=== PATIENT | male | born 1995 ===

== ENCOUNTER 2023-01-29 11:15 | Emergency (ER) | payer OTHER, SELFPAY ==
--- NOTE | ~2023-01-29 | CT_ITS ---
EXAMINATION: CT MAXILLOFACIAL WITH CONTRAST CLINICAL INFORMATION: Left upper molar abscess with left facial swelling. COMPARISON: There are no prior studies available for comparison at time of dictation. TECHNIQUE: Multidetector helical imaging was performed in the axial plane without and with intravenous contrast with generation of coronal and sagittal reformatted images. 85 mL of Omnipaque 350 were given intravenously. DLP: 580.34 mGy-cm. FINDINGS: MAXILLA: There are extensive periapical lucencies around the roots of the root filled left maxillary 1st molar tooth. No definite defect is noted in the alveolar bone or inferior left maxillary sinus. However, there is loss of the buccal fat along the left maxilla, and there is increased attenuation and swelling in the left malar soft tissues. There is moderate beam hardening artifact, limiting evaluation for a definite focal abscess. There are also periapical lucencies around the roots of the left maxillary 2nd molar tooth. There is moderate polypoid mucoperiosteal thickening in the inferior left maxillary sinus adjacent to the roots of the molar teeth as described above, and the changes in the sinus may be odontogenic related. No fractures are demonstrated. MANDIBLE: The mandible is intact, and no fractures are demonstrated. There are no periapical lucencies around the roots of the mandibular teeth. PARANASAL SINUSES: As described above there is mucoperiosteal thickening in the left maxillary sinus, and there is opacification of the left ostiomeatal complex. There is minimal mucoperiosteal thickening circumferentially in the right maxillary sinus; the ostiomeatal complex is patent. The frontal and sphenoid sinuses are well-aerated. There is mild mucoperiosteal thickening in the bilateral ethmoid air cells. NASAL CAVITY AND SEPTUM: The nasal septum is slightly deviated to the right. There are no prominent right-sided bony nasal septal spurs. There are no large polyps or masses in the nasal cavities. ORBITS: The bony orbits and the orbital contents appear normal bilaterally. TEMPOROMANDIBULAR JOINTS: The temporomandibular joints are normally aligned, and the condylar heads appear normal. ADDITIONAL RELEVANT FINDINGS: The lamina papyracea are intact. The carotid canals are normally covered by bone. The ethmoid roofs are symmetric. The mastoid air cells are clear. Limited evaluation demonstrates no acute intracranial findings. CT/CT facial bones w IV con IMPRESSION: 1. There are extensive periapical lucencies around the roots of the root filled left maxillary 1st and molar tooth, with smaller periventricular lucencies around the roots of the left mandibular 2nd molar tooth. There is loss of the buccal fat along the left maxilla, and there is increased attenuation and swelling in the left malar soft tissues; these findings are consistent with an odontogenic related infective process in the left malar region, but no definite discrete fluid collection is demonstrated. 2. There is mucoperiosteal thickening in the inferior left maxillary sinus, which may be odontogenic related. There is mild paranasal sinus disease in the bilateral ethmoid and the right maxillary sinuses.
[2023-01-29 11:22] VITALS: BP 150/103; PULSE 93; RESP 16; TEMP 36.6; O2SAT 97; BMI 36.9
--- NOTE | 2023-01-29 11:26 | ED_ITS ---
HPI - Dental/Oral General Chief complaint: Dental/Oral Stated complaint: Swelling/pain in face Time Seen by Provider: 01/29/23 11:51 Source: patient Mode of arrival: ambulatory Limitations: no limitations History of Present Illness HPI Narrative: 27 year old male with no significant pmhx presents to the ED today with a complaint of upper dental pain and facial swelling x1 day. Reports pain to his left upper molar, first noticed last night. Pain has been worsening since onset. Reports waking up this morning with swelling to the left side of his face and 10/10 shooting pains. Admits to difficulty opening his mouth secondary to pain/ swelling. States he can see a bump along the gum of his molar. Did not take anything for the pain prior to arrival. Reports root canal in the affected tooth one year ago. Denies trauma to the mouth/ tooth. Denies fever, chills, difficulty or pain with swallowing, difficulty breathing. Related Data Previous Rx's Medication Instructions Recorded clindamycin HCl 300 mg capsule 300 mg PO TID 10 days #30 caps 01/29/23 morphine 15 mg immediate release 15 mg PO Q8H PRN pain (scale score 01/29/23 tablet 7-10) #14 tabs Allergies Allergy/AdvReac Type Severity Reaction Status Date / Time No Known Allergies Allergy Verified 01/29/23 11:22 Review of Systems 2 Review of Systems: Constitutional: No fever, chills, fatigue, night sweats, weight changes ENT/Mouth: No ear pain, hearing loss, nasal congestion, sinus pain, rhinorrhea, sore throat, +dental pain Eyes: No eye pain, swelling, redness, vision changes, discharge Cardio: No chest pain, palpitations, LARIOS, orthopnea, peripheral edema Pulm: No SOB, cough, sputum, wheezing, dyspnea, hemoptysis GI: No nausea, vomiting, hematemesis, abdominal pain, diarrhea, constipation, hematochezia, melena : No irregular bleeding, dysuria, frequency, urgency, hesitancy, hematuria, flank pain, urinary flow changes, urinary incontinence or retention MSK: No back pain, neck pain, joint pain, myalgias Skin: No lesions, rashes Neuro: No weakness, numbness, paresthesias, LOC, dizziness, headache All other systems reviewed and are negative. [facility] Past Medical History Attestation statement: The following information was validated with the patient. Source: old records reviewed and nursing notes reviewed Social History Smoked in Last 30 Days: No Use of substances other than those prescribed or required for medical reasons: Yes Substance Use Type: Marijuana Advance Directives: No Advance Directives Information Provided: No Physical Exam 2 Vital Signs: Vital Signs: Last Vital Signs Temp 98.1 F 01/29/23 14:36 Pulse 85 01/29/23 14:36 Resp 20 01/29/23 14:36 BP 170/90 H 01/29/23 14:36 Pulse Ox 97 01/29/23 14:36 O2 Del Method Room Air 01/29/23 14:36 BMI result Body Mass Index 36.9 Vital signs stable, afebrile Const: Other: + uncomfortable, walking around the room , yelling in pain General: cooperative, alert and awake Orientation/consciousness: patient oriented x3 Limitations: no limitations HEENT: Other: Face: left facial swelling from the zygomatic region extending to the jaw line. no overlying cellulitic changes. Mouth: lips & tongue wnl. multiple dental carries. crown noted to left tooth #14 with small abscess around the lingual and buccal gingiva. ttp. palpable fluctuance to lingual gingival abscess. left buccal mucosa edematous, ttp. posterior oropharynx without erythema/ edema, uvula midline, speaking in complete sentences and controlling secretions. General nose exam: Normal external nose present Teeth and gingiva: c lily, multiple restorations and poor dentition Teeth image: 1. affected tooth with small abscess noted to lingual and buccal gingiva Eyes: General: appearance normal, both eyes and all related structures P eriorbital: periorbital findings normal Conjunctivae: conjunctivae normal Sclerae: sclerae normal Pupils: Equal, round and reactive pupils present E OM: EOMs intact bilaterally Neck: Neck: Yes normal visual inspection, Yes full ROM and Yes no lymphadenopathy Resp: Effort & Inspection: normal respiratory effort, able to speak in complete sentences, no respiratory distress and no tripod positioning A uscultation: clear to auscultation bilaterally Cardio: Rate: regular rate Rhythm: regular rhythm Peripheral pulses: r adial pulses present Skin: General skin exam: no rashes or lesions noted Neuro: General: patient oriented x3, gait normal and moves all extremities Cranial nerves: Yes Equal, round and reactive pupils present Extrem: General: Yes normal to inspection and Yes full ROM Course Course Course Narrative: RME: 27yo M w/PMHx prior root canal c/o L upper dental pain and facial swelling x last night. denies fever +L upper tooth w/gingival swelling/erythema and fluctuance. +L facial swelling & lymphadenopathy submandibularly Labs ordered Full HPI, ROS and PE to be performed by primary ED provider. Reevaluation(s) Reevaluation #1: 1230-- CBC with leukocytosis to 12.4. No anemia. H&H stable. Chemistry without acute electrolyte abnormality requiring intervention. Lactic acid 0.8. CRP elevated to 1.12 indicating inflammatory process. Sed rate WNL. Vital signs stable. I do not suspect sepsis at this time. Patient will receive a dose of IV clindamycin for broad-spectrum antibiotic coverage along with IV morphine as we await CT. > patient requesting STD testing. Denies symptoms of penile discharge, itching, or dysuria. States his partner has been having issues conceiving and he would like proof that he does not have an STD. I offered CT/NG urine test and patient agrees. 1430-- CT facial bones showing periapical lucencies around the affected tooth indicative of dental infection. There is no discrete fluid collection to indicate abscess. Informed patient of imaging results. Informed patient that he needs to follow up with a dentist this week. He states that he has a dentist at [facility]. I will also provide him with a referral to dentist in [place] if he is unable to get in with his dentist. Advised him to call tomorrow morning to make an appointment. His vital signs have remained stable and he is afebrile. I still do not suspect sepsis. On re-evaluation he states that his pain has improved with morphine. Will send him home with clindamycin and oral morphine for pain control. Discussed strict return precautions. All questions answered at this time. Patient is agreeable disposition and stable for discharge. Medications Administered Discontinued Medications Generic Name Dose Route Start Last Admin Trade Name Freq PRN Reason Stop Dose Admin Sodium Chloride 1,000 mls @ 999 mls/hr 01/29/23 12:00 01/29/23 13:02 Ns IV 01/29/23 13:00 Infused .Q1H1M AMIRA Infusion Clindamycin Phosphate 600 mg in 50 mls @ 100 mls/hr 01/29/23 12:24 01/29/23 13:05 Cleocin IV 01/29/23 12:53 Infused ONCE ONE Infusion Iohexol 100 ml 01/29/23 13:15 01/29/23 13:15 Iohexol 350 Mg/Ml 100 Ml Infus..Btl IV 01/29/23 13:16 85 ml ONCE ONE Administration Morphine Sulfate 4 mg 01/29/23 11:54 01/29/23 12:01 Morphine Sulfate 4 Mg/Ml Cartridge IVPUSH 01/29/23 11:55 4 mg ONCE ONE Administration Protocol Morphine Sulfate 4 mg 01/29/23 13:12 01/29/23 13:23 Morphine Sulfate 4 Mg/Ml Cartridge IVPUSH 01/29/23 13:13 4 mg ONCE ONE Administration Protocol Medical Decision Making Medical Decision Making [facility] Narrative: 27 year old male with no significant pmhx presents to the ED today with a complaint of upper dental pain and facial swelling x1 day. VSS, afebrile. Patient in obvious discomfort, pacing around the room in pain. Nontoxic appearing. On exam, there is left facial swelling from the zygomatic region extending to the jaw line. no overlying cellulitic changes. lips & tongue wnl. multiple dental carries. crown noted to left tooth #14 with small abscess around the lingual and buccal gingiva. ttp. palpable fluctuance to lingual gingiva abscess. left buccal mucosa edematous, ttp . posterior oropharynx without erythema/ edema, uvula midline, speaking in complete sentences and controlling secretions. Clinical concern for dental caries, dental/periapical abscess, facial cellulitis/abscess. Unlikely dental fracture, avulsion, or subluxation. Unlikely facial fracture, parotitis, osteomyelitis, deep neck infection, sepsis, or bacteremia, airway compromise. Unlikely periorbital or orbital cellulitis. Plan for labs, lactic and CT. Differential Diagnosis Differential Diagnoses: The differential diagnosis associated with the presentation includes As above. Admission/Observation Consideration of admission/observation: Escalation of care including admission/observation considered In this patient with dental infection and facial swelling, admission was considered. Lab Data [facility] Lab Attestation statement: I reviewed the patient's lab results. As above. 01/29/23 11:45 01/29/23 11:45 Labs: Lab Results 01/29/23 01/29/23 Range/Units 11:45 12:46 WBC 12.4 H (4.8-10.8) X10*3/uL RBC 5.68 (4.60-5.80) X10*6/uL Hgb 15.3 (14.0-18.0) g/dl Hct 46.5 (42.0-52.0) % MCV 81.9 (80.0-98.0) fL MCH 26.9 L (27.0-33.0) pg MCHC 32.9 (31.0-36.0) g/dl RDW 13.3 (11.0-16.0) % Plt Count 360 (160-400) X10*3/uL MPV 10.1 (9.4-12.4) fL Immature Gran % (Auto) 1.0 H (0.0-0.4) % Neut % (Auto) 78.2 H (45-73) % Lymph % (Auto) 12.2 L (20-40) % Billings % (Auto) 6.5 (2-11) % Eos % (Auto) 1.9 (0-4) % Baso % (Auto) 0.2 (0-2) % Lymph # (Auto) 1.5 (1.2-4.9) X10*3/uL Billings # (Auto) 0.8 (0.1-1.2) X10*3/uL Eos # (Auto) 0.2 (0.0-0.4) X10*3/uL Baso # (Auto) 0.0 (0.0-0.2) X10*3/uL Abs Immat Gran (auto) 0.12 H (0.00-0.03) X10*3/uL Absolute Neuts (auto) 9.7 H (2.0-8.3) x10*3/uL Absolute Nucleated RBC 0.000 (0.0-0.012) X10*3/uL Nucleated RBC % (auto) 0.0 (0.0-0.2) /100WBC ESR 12 (0-15) MM/HR Sodium 139 (135-145) mmol/L Potassium 4.1 (3.3-5.1) mmol/L Chloride 108 (96-108) mmol/L Carbon Dioxide 24 (22-29) mmol/L Anion Gap 11 L (12-20) BUN 11 (9-16) mg/dL Creatinine 0.86 (0.5-1.4) mg/dL Estim Creat Clear Calc 157.2 Estimated GFR > 60 Random Glucose 92 (60-115) mg/dL Lactic Acid 0.8 (0.5-2.0) mmol/L Calcium 9.1 (8.4-10.2) mg/dL C-Reactive Protein 1.12 H (< or = 0.50) mg/dL Chlam trachomat DNA PCR NOT DETECTED (Not Detect.) N.gonorrhoeae DNA (PCR) NOT DETECTED (Not Detect.) Independent Interpretation I performed an independent interpretation of an: CT Scan Interpretation: CT facial bones without acute fluid collection indicating abscess, agree with radiologist's interpretation. Radiology Impression Discussion of test interpretation with radiology: I have reviewed the radiologist's reading. Radiologist Impression: CT facial bones w IV con IMPRESSION: 1. There are extensive periapical lucencies around the roots of the root filled left maxillary 1st and molar tooth, with smaller periventricular lucencies around the roots of the left mandibular 2nd molar tooth. There is loss of the buccal fat along the left maxilla, and there is increased attenuation and swelling in the left malar soft tissues; these findings are consistent with an odontogenic related infective process in the left malar region, but no definite discrete fluid collection is demonstrated. 2. There is mucoperiosteal thickening in the inferior left maxillary sinus, which may be odontogenic related. There is mild paranasal sinus disease in the bilateral ethmoid and the right maxillary sinuses. Independent Historian Clinical information obtained from an independent historian. History obtained from or confirmed by: Parent (mom) External Record Review External record reviewed: Inpatient record Prescription Management I considered prescription management with: Pain Medication and Antibiotic Chronic Conditions Patient?s care impacted by: Other (Dental caries, poor dentition) Social Determinants Patient?s care significantly limited by Social Determinants of Health including: Other Social Determinant of Health Procedures Abscess I/D Site: oral Side (if applicable): left Sedation/analgesia: none Local Anesthetic: other anesthetic (lollicaine topical anesthetic ) Technique: needle aspiration Amount of fluid expressed (mL): 1 Sent for culture/gram staining?: No Irrigation: No Packing used?: none Critical Care Time Critical Care Time Critical Care Time: Yes Total Critical Care Time: 45 Attestation: Critical care time in the amount of 45 minutes has been provided to the patient in terms of direct patient care, frequent reevaluation on IV morphine, review and interpretation of medical data and results, and management of potentially life-threatening conditions. This is all outside of any medical procedures. Discharge Plan Discharge Clinical Impression: Dental infection Patient Disposition: Home, Self-Care Instructions: Dental Abscess (ED), Root Canal (DC) Additional Instructions: Your lab work today showed a slight increase in white blood cell count indicating infection. This CT of your facial bones showed infection to your l upper left 1st and 2nd molar with swelling of your left cheek. It does not show a discrete fluid collection to indicate an abscess. This does not warrant surgery or surgical drainage at this time. Your given a dose of antibiotics in the emergency department today. Your pain improved with IV morphine. Clindamycin is an antibiotic that will treat your dental infection. This is been sent to your pharmacy. Take the entire course of antibiotics and do not miss any doses or stop taking them early as this may cause infection to return or worsen. Morphine has been sent to your pharmacy. Take this as needed for pain/discomfort. Follow-up with your dentist this week. If you are unable to get in with them, a referral for a new dentist has been provided to you. Additionally you tested negative for gonorrhea and chlamydia. If symptoms persist or worsen, you began to have trouble swallowing or breathing, the infection worsens despite treatment with antibiotics, please return to the emergency department. In case of emergency call 911. [address] Phone number: [phone] Prescriptions: New clindamycin HCl 300 mg capsule 300 mg PO TID 10 Days Qty: 30 0RF morphine 15 mg tablet 15 mg PO Q8H PRN (Reason: pain (scale score 7-10)) Qty: 14 0RF Rx Instructions: Partial Fill upon patient request. Stand Alone Forms: Work/School Release Interventions: ED Discharge Assessment Last Done: 01/29/23 15:03 Discharge Date/Time: 01/29/23 15:06
--- NOTE | 2023-01-29 11:49 | PC.NURSE ---
20gIV placed in right AC w/o difficulty - labs drawn and sent to lab. tech obtaining second round of cultures at this time. pt c/o 12/13 left face/tooth pain. pt had tooth extracted a year ago and didn't have problems until last night. swelling/tender to touch. afebrile at this time. denies fever chills. family bedside. call wallis placed within reach.
[2023-01-29 11:52] LABS: MANUAL DIFF FLAG NO
[2023-01-29 11:54] LABS: Basophils Percent Auto 0.2 % (0-2); Eosinophils Absolute Auto 0.2 X10*3/uL (0.0-0.4); Eosinophils Percent Auto 1.9 % (0-4); Hematocrit 46.5 % (42.0-52.0); Hemoglobin 15.3 g/dl (14.0-18.0); Imm Gran Abs Auto 0.12 X10*3/uL (0.00-0.03); Lymphocytes Absolute Auto 1.5 X10*3/uL (1.2-4.9); Lymphocytes Percent Auto 12.2 % (20-40); Mean Corpuscular HGB Conc 32.9 g/dl (31.0-36.0); Mean Corpuscular Hemoglobin 26.9 pg (27.0-33.0); Mean Corpuscular Volume 81.9 fL (80.0-98.0); Mean Platelet Volume 10.1 fL (9.4-12.4); Monocytes Absolute Auto 0.8 X10*3/uL (0.1-1.2); Monocytes Percent Auto 6.5 % (2-11); Neutrophils Absolute Auto 9.7 x10*3/uL (2.0-8.3); Neutrophils Percent Auto 78.2 % (45-73); Platelet Count 360 X10*3/uL (160-400); Red Blood Count 5.68 X10*6/uL (4.60-5.80); Red Cell Distribution Width 13.3 % (11.0-16.0); White Blood Count 12.4 X10*3/uL (4.8-10.8)
[2023-01-29] MEDS: Morphine Sulfate 4 MG/ML CARTRIDGE IVPUSH ×2 (12:01→13:23)
[2023-01-29] MEDS: 0.9 % Sodium Chloride 1,000 ML 999 ML IV (12:01)
[2023-01-29 12:03] LABS: Lactic Acid 0.8 mmol/L (0.5-2.0)
--- NOTE | 2023-01-29 12:04 | PC.NURSE ---
medications administered per provider order.
[2023-01-29 12:06] LABS: Anion Gap 11 (12-20); Blood Urea Nitrogen 11 mg/dL (9-16); C Reactive Protein 1.12 mg/dL (< or = 0.50); Calcium 9.1 mg/dL (8.4-10.2); Carbon Dioxide 24 mmol/L (22-29); Chloride 108 mmol/L (96-108); Creatinine Clr Calc Pharmacy 157.2; Estimated Glomerular Filt Rate > 60; Glucose Random 92 mg/dL (60-115); Potassium 4.1 mmol/L (3.3-5.1); Sodium 139 mmol/L (135-145)
[2023-01-29 12:29] LABS: Erythrocyte Sedimentation Rate 12 MM/HR (0-15)
[2023-01-29] MEDS: Clindamycin Phosphate/D5W 600 MG/50 ML PIGGYBACK 100 MG IV (12:35)
--- NOTE | 2023-01-29 12:40 | PC.NURSE ---
abx administered per provider order.
[2023-01-29] MEDS: iohexoL 350 MG/ML 100 ML INFUS..BTL IV (13:15)
--- NOTE | 2023-01-29 13:27 | PC.NURSE ---
medication administered per provider. provider bedside.
[2023-01-29 14:24] LABS: CT PCR NOT DETECTED (Not Detect.); NG PCR NOT DETECTED (Not Detect.)
[2023-01-29 14:36] VITALS: BP 170/90; PULSE 85; RESP 20; TEMP 36.7; O2SAT 97
== END 2023-01-29 15:06 | disposition home or self-care (01) ==
PROVIDERS: Physician Assistant; Physician Assistant Medical; Emergency Provider Emergency Medicine; PCP Nurse Practitioner Family
DX: K04.7 Periapical abscess without sinus (principal); K08.89 Other specified disorders of teeth and supporting structures; Z79.899 Other long term (current) drug therapy; Z20.2 Contact with and (suspected) exposure to infections with a predominantly sexual mode of transmission
CPT/HCPCS: 0353U; 36415; 41800; 70487; 80048; 83605; 85025; 85652; 86140; 87040; 96361; 96374; 96375; 96376; 99284; J0736; J2270; Q9967

== ENCOUNTER 2023-09-11 13:07 | Emergency (ER) | payer OTHER, SELFPAY ==
[2023-09-11 14:10] VITALS: BP 131/89; PULSE 107; RESP 18; TEMP 37; O2SAT 98; BMI 39.5
[2023-09-11 14:32] LABS: MANUAL DIFF FLAG NO
[2023-09-11 14:36] LABS: Appearance Urine Turbid; Color Urine Yellow; Glucose Urine UA Negative (Negative); Leukocyte Esterase Urine Negative (Negative); Nitrite Urine Negative (Negative); PH 7.5 (5.0-9.0); Specific Gravity - Urine 1.025 (1.005-1.025); Urine Blood Negative (Negative); Urine Ketones Negative (Negative); Urine Protein Negative (Neg-Trace)
[2023-09-11 14:38] LABS: Basophils Absolute Auto 0.1 X10*3/uL (0.0-0.2); Basophils Percent Auto 0.6 % (0-2); Eosinophils Absolute Auto 0.2 X10*3/uL (0.0-0.4); Eosinophils Percent Auto 1.7 % (0-4); Hematocrit 45.9 % (42.0-52.0); Hemoglobin 15.2 g/dl (14.0-18.0); Imm Gran Abs Auto 0.16 X10*3/uL (0.00-0.03); Imm Gran Pct Auto 1.4 % (0.0-0.4); Lymphocytes Percent Auto 17.1 % (20-40); Mean Corpuscular HGB Conc 33.1 g/dl (31.0-36.0); Mean Corpuscular Hemoglobin 27.6 pg (27.0-33.0); Mean Corpuscular Volume 83.5 fL (80.0-98.0); Mean Platelet Volume 10.5 fL (9.4-12.4); Monocytes Absolute Auto 0.7 X10*3/uL (0.1-1.2); Monocytes Percent Auto 5.8 % (2-11); Neutrophils Absolute Auto 8.4 x10*3/uL (2.0-8.3); Neutrophils Percent Auto 73.4 % (45-73); Platelet Count 331 X10*3/uL (160-400); Red Cell Distribution Width 13.2 % (11.0-16.0); White Blood Count 11.5 X10*3/uL (4.8-10.8)
[2023-09-11 14:49] LABS: Alanine Aminotransferase 75 U/L (0-40); Albumin Level 4.4 g/dL (3.5-5.0); Alkaline Phosphatase 54 U/L (39-117); Anion Gap 12 (12-20); Aspartate Amino Transferase 35 U/L (5-37); Bilirubin Total 0.2 mg/dL (0.0-1.0); Blood Urea Nitrogen 13 mg/dL (9-16); Calcium 9.7 mg/dL (8.4-10.2); Carbon Dioxide 23 mmol/L (22-29); Chloride 109 mmol/L (96-108); Creatinine Clr Calc Pharmacy 170.4; Estimated Glomerular Filt Rate > 60; Glucose Random 90 mg/dL (60-115); Potassium 4.1 mmol/L (3.3-5.1); Sodium 140 mmol/L (135-145); Total Protein 7.5 g/dL (6.5-8.0)
[2023-09-11 15:12] LABS: Influenza A PCR NEGATIVE (Negative); Influenza B PCR NEGATIVE (Negative); Resp Syncy Virus RNA Qual PCR NEGATIVE (Negative); SARS COV2 PCR INHOUSE NEGATIVE (Negative)
[2023-09-11 15:50] LABS: Lipase 42 U/L (8-78)
== END 2023-09-11 19:37 | disposition left against medical advice (07) ==
PROVIDERS: Physician Assistant; Emergency Provider Emergency Medicine; PCP Nurse Practitioner Family
DX: R10.9 Unspecified abdominal pain (principal); Z03.818 Encounter for observation for suspected exposure to other biological agents ruled out; Z79.899 Other long term (current) drug therapy
CPT/HCPCS: 0241U; 80053; 81003; 83690; 85025; 99282; 99283

== ENCOUNTER 2024-07-08 16:40 | Emergency (ER) | payer SELFPAY ==
[2024-07-08 17:00] VITALS: BP 134/86; PULSE 94; RESP 18; TEMP 36.6; O2SAT 98; BMI 40.0
--- NOTE | 2024-07-08 18:38 | ED.GENADULT ---
HPI - General Adult General Chief complaint: Eye Problems Stated complaint: ?pink eye/left Time Seen by Provider: 07/08/24 18:37 Source: patient Mode of arrival: ambulatory Limitations: no limitations History of Present Illness ED Provider: Afshin Molina [facility] narrative: 28 yold male presents to the ED for left eye irritation since this morning. Patient states waking up with left eye redness, yellow discharge, and yellow matting crusting on eyelids. patient denies any eye pain, change in vision, recent trauma, or sleeping with contacts. Related Data Previous Rx's ?Medication ?Instructions ?Recorded clindamycin HCl 300 mg capsule 300 mg PO TID 10 days #30 caps 01/29/23 morphine 15 mg immediate release 15 mg PO Q8H PRN pain (scale score 01/29/23 tablet 7-10) #14 tabs erythromycin 5 mg/gram (0.5 %) eye 0.5 inch ophthalmic (eye) QID 5 07/08/24 ointment days #3.5 grams Allergies Allergy/AdvReac Type Severity Reaction Status Date / Time No Known Allergies Allergy Verified 07/08/24 17:02 Review of Systems Review of Systems: left eye irrataions Yes all other systems are reviewed and are negative [facility] Social History Social History Substance Use Type: Marijuana Advance Directives: No Advance Directives Information Provided: No Do you have a plan to hurt others: No Plan Physical Exam ED Vital Signs: Vital Signs - 24 hr 07/08/24 17:00 07/08/24 19:11 Temperature 98 F 98 F Pulse Rate 94 94 Respiratory Rate 18 18 Blood Pressure 134/86 134/86 Pulse Oximetry 98 98 Oxygen Delivery Method Room Air Room Air BMI result Body Mass Index 40.0 Const General: cooperative, healthy appearing, comfortable, no acute distress, well developed, alert, awake and Physically active Orientation/consciousness: patient oriented x3 HENMT Head: Yes normal to inspection, Yes No palpable skull fracture present, Yes normocephalic, Yes atraumatic and No abrasion Ears: hearing grossly normal bilaterally, external ears normal, TM's normal bilaterally, TM normal on the right, TM normal on the left, EAC's normal and mastoids normal Throat: Yes posterior oropharynx normal, Yes tonsils normal and Yes uvula midline Eyes Other: RIght eye: normal. visual acuity 20/20 Left eye: mild conjuctiva erythema. positive for clear discharge. negative for eyelid swelling. FLurouscein dye test with wood's lamp negative for corneal abrasions, cornela ulcer, globe rupture, foreign body, dendrites, or hyphema. Negative for signs of glaucoma or orbital celluliitis. visual acuity 20/20 Neck Neck: Yes normal visual inspection, Yes full ROM, Yes no lymphadenopathy, Yes no meningeal signs, Yes trachea midline, Yes supple, No anterior neck swelling and No tender Chest Chest palpation & inspection: normal inspection of the chest and normal palpation of entire chest wall Resp Effort & Inspection: normal respiratory effort and able to speak in complete sentences Auscultation: clear to auscultation bilaterally Cardio Jugular venous distension: no JVD Heart sounds: S1 normal heart sound present and S2 normal heart sound present GI Inspection: Yes normal to inspection Palpation (GI): Soft to palpation, not firm, nontender, no guarding and not rigid General: Yes no CVA tenderness Back/Spine/Pelvis Back: no CVA tenderness and No back tenderness Skin General skin exam: no rashes or lesions noted, elasticity normal and turgor normal Neuro General: patient oriented x3, gait normal, tone normal, moves all extremities, Normal light touch and pain sensation, no meningeal signs, no focal motor deficits and CN's II-XI intact bilaterally Extrem General: Yes normal to inspection, Yes full ROM and Yes capillary refill normal Psych Appearance: grossly normal, well kempt and not disheveled Medical Decision Making Medical Decision Making MDM Narrative: 28 yold male presents to the ED for left pink eye irrationa since this morning. Patient states he woke up with left eyelids yellow crusting with yellow discharge and matting. patient denies any eye pain, changer in vision, recent trauma, wearing contacts, dizziness, or headache. Not suspecting glaucoma, globe rupture, corneal abrasions, corneal ulcer, orbital cellulitis, or any other life-threatening etiology. Patient will be discharged with erythromycin. Patient explained worrisome signs informed to return to the ED immediately Differential Diagnosis Differential Diagnoses: The differential diagnosis associated with the presentation includes (Patient is a virus corneal abrasion corneal ulcer) Admission/Observation Consideration of admission/observation: Escalation of care including admission/observation considered Independent Historian Clinical information obtained from an independent historian. History obtained from or confirmed by: Other (patient) Prescription Management I considered prescription management with: Antibiotic Discharge Plan Discharge Clinical Impression: Bacterial conjunctivitis Patient Disposition: Home, Self-Care Instructions: Conjunctivitis (ED) Additional Instructions: Return to the ED immediately for any change in vision, loss of vision, eye pain, headache, nausea, vomiting, fever, chills, or any other concerning symptoms. Recommend follow up with primary care provider and eye doctor. Prescriptions: New erythromycin 5 mg/gram (0.5 %) ointment 0.5 inch ophthalmic (eye) QID 5 Days Qty: 3.5 0RF No Action clindamycin HCl 300 mg capsule 300 mg PO TID 10 Days Qty: 30 0RF morphine 15 mg tablet 15 mg PO Q8H PRN (Reason: pain (scale score 7-10)) Qty: 14 0RF Rx Instructions: Partial Fill upon patient request. Referrals: Chadwick López NP [Primary Care Provider] - (Conjunctivitis) Pedro Mccain [Physician] - (Conjunctivitis) Stand Alone Forms: Work/School Release Interventions: ED Discharge Assessment Last Done: 07/08/24 19:11 Discharge Date/Time: 07/08/24 19:11 Print Language: [place]
[2024-07-08 19:11] VITALS: BP 134/86; PULSE 94; RESP 18; TEMP 36.6; O2SAT 98
== END 2024-07-08 19:11 | disposition home or self-care (01) ==
PROVIDERS: Emergency Provider Emergency Medicine Emergency Medical Services; PCP Nurse Practitioner Family
DX: H10.89 Other conjunctivitis (principal); H57.89 Other specified disorders of eye and adnexa
CPT/HCPCS: 99282; 99283

== ENCOUNTER 2024-11-16 08:56 | Emergency (ER) | payer OTHER, SELFPAY ==
[2024-11-16 09:11] VITALS: BP 175/89; PULSE 94; RESP 16; TEMP 36.8; O2SAT 98; BMI 40.6
[2024-11-16 11:45] LABS: MANUAL DIFF FLAG NO
[2024-11-16 11:46] LABS: Hematocrit 43.2 % (42.0-52.0); Hemoglobin 14.7 g/dl (14.0-18.0); Imm Gran Abs Auto 0.06 X10*3/uL (0.00-0.03); Imm Gran Pct Auto 0.7 % (0.0-0.4); Lymphocytes Absolute Auto 1.8 X10*3/uL (1.2-4.9); Mean Corpuscular HGB Conc 34.0 g/dl (31.0-36.0); Mean Corpuscular Hemoglobin 27.2 pg (27.0-33.0); Mean Corpuscular Volume 80.0 fL (80.0-98.0); NRBC Abs Auto 0.000 X10*3/uL (0.0-0.012); NRBC Pct Auto 0.0 /100WBC (0.0-0.2); Platelet Count 296 X10*3/uL (160-400); Red Blood Count 5.40 X10*6/uL (4.60-5.80); White Blood Count 8.2 X10*3/uL (4.8-10.8)
--- NOTE | 2024-11-16 11:46 | ED.GENADULT ---
HPI - General Adult General Chief complaint: Extremity Problem Stated complaint: both hands numb Time Seen by Provider: 11/16/24 11:13 Source: patient, RN notes reviewed and old records reviewed Mode of arrival: ambulatory Limitations: no limitations History of Present Illness ED Provider: REBECCA Knapp HPI narrative: 29-year-old male without significant medical history presents to the ED due to 2 weeks of bilateral hand numbness and pain of the 1st 3 digits with right worse than left. 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 Patient states he has been working out a lot in the gym works out daily doing different movements which exacerbates the pain. Additionally, patient states he has had sneezing, nasal congestion and cough over the last 2 days, does endorse SOB but states he has been dealing with this symptom over the past 2 years and was supposed to be evaluated for sleep apnea but never went to his sleep study. Denies sick contacts, recent travel, chest pain, neck pain, back pain, abdominal pain, nausea, vomiting, dark/tarry stool, diarrhea MD complaint: B/L hand numbness and tingling Related Data Previous Rx's ?Medication ?Instructions ?Recorded clindamycin HCl 300 mg capsule 300 mg PO TID 10 days #30 caps 01/29/23 morphine 15 mg immediate release 15 mg PO Q8H PRN pain (scale score 01/29/23 tablet 7-10) #14 tabs erythromycin 5 mg/gram (0.5 %) eye 0.5 inch ophthalmic (eye) QID 5 07/08/24 ointment days #3.5 grams Allergies Allergy/AdvReac Type Severity Reaction Status Date / Time No Known Allergies Allergy Verified 11/16/24 09:13 Review of Systems Review of Systems: CONST: Negative for fever, body aches and chills. HENT: Negative for neck pain/stiffness, headache, congestion, sore throat, swelling. EYES: Negative for discharge/pain or vision changes. RESP: Negative for cough/hemoptysis and shortness of breath. CV: Negative chest pain, difficulty breathing, palpitations. ABD: Negative pain, nausea, vomiting. : Negative increase frequency, dysuria, blood in urine or stool. MUSC: Negative for muscle aches, edema. SKIN: Negative rash, lesions/sores. NEURO: Negative headache, dizziness, weakness. [facility] Social History Social History Substance Use Type: Marijuana Advance Directives: No Advance Directives Information Provided: No Do you have a plan to hurt others: No Plan Physical Exam ED Vital Signs: Vital Signs - 24 hr 11/16/24 09:11 11/16/24 12:07 11/16/24 13:25 Temperature 98.3 F 97.8 F 97.8 F Pulse Rate 94 90 90 Respiratory Rate 16 14 14 Blood Pressure 175/89 H 132/81 132/81 Pulse Oximetry 98 95 95 Oxygen Delivery Method Room Air Room Air BMI result Body Mass Index 40.6 GENERAL APPEARANCE: ?AxOx4, generally well-appearing, no acute distress. HEENT: ?NC, AT. MMM. EOMI, clear conjunctiva, oropharynx clear. NECK: ?Supple without lymphadenopathy.? No stiffness or restricted ROM. HEART:? Normal rate and regular rhythm, normal S1/S2, no m/r/g LUNGS:? CTAB, moving air well. No crackles or wheezes are heard. ABDOMEN: ?Soft, nontender, nondistended with good bowel sounds heard. BACK: No CVAT, no obvious deformity. EXTREMITIES: ?Without cyanosis, clubbing or edema. SILT of bilateral upper extremities, 2+ radial pulses bilaterally, appropriate capillary refill time, ROM intact, patient able to make a full fist, opposition intact, positive Phalen's test of R hand. NEUROLOGICAL: ?Grossly nonfocal. Alert and oriented, moving all 4 extremities. No neurological deficits noted, no speech slurring, no pronator drift, patient able to ambulate without ataxic gait, able to heel walk and toe walk, Skin: ?Warm and dry without any rash. Medical Decision Making Medical Decision Making MDM Narrative: 29-year-old male without significant medical history presents to the ED due to 2 weeks of bilateral hand numbness and pain of the 1st 3 digits with right worse than left. Patient does work in the restaurant industry with repetitive hand movements making pain worse. Patient does go to the gym daily which seems to exacerbate the pain in the hands. Sleeping at night, he does endorse folding his hands under his chin making pain worse in the hands and wrist. Additionally, patient states he was supposed to have sleep study done for JOSÉ but has not followed up to do so. VS on initial observation-BP 175/89, pulse rate of 94, respiratory rate of 16, afebrile with oral temperature of 98.3?, O2 saturation 98% on room air. On physical exam upper extremities with SILT, full ROM, able to make a fist, opposition intact, appropriate capillary refill, 2+ radial pulses bilaterally. No neurological deficits noted on exam, no facial drooping, no speech slurring, strength 5/5 bilaterally of upper extremities and lower extremities, SILT intact of both upper extremities and lower extremities, patient able to ambulate without ataxic gait, patient able to heel and toe walk. There is a positive Phalen's test on examination. Patient without cervical neck pain, back pain, I am not concerned for nerve impingement at this time. Patient without neurological deficits, I am not concerned for stroke at this time. Plan: Labs, viral serology Course 13:30- Labs without leukocytosis/leukopenia, H&H stable, no evidence of electrolyte abnormality, HB A1c WNL at 5.3, TSH WNL, vitamin B12/folate WNL. Viral serology negative. Patient without neurological deficits, ROM intact, SILT of upper extremities. Patient complaining of pain of the 1st 3 digits of bilateral hands with positive Phalen's test. Patient works in a restaurant, in the gym with repetitious hand movements. Patient does have primary care doctor was supposed to be evaluated for sleep apnea but has not gone to this appointment. I counseled patient on the importance of following up with his primary care provider for further evaluation and management of his symptoms. I also placed [place] [facility] [place] for further evaluation for possible carpal tunnel. I discharge patient with wrist braces that I counseled him to wear at night to help protect the nerves while sleeping. I counseled patient on strict return precautions. He is in agreement with the plan. Differential Diagnosis Differential Diagnoses: The differential diagnosis associated with the presentation includes Stroke Nerve impingement Electrolyte abnormality Carpal tunnel Admission/Observation Consideration of admission/observation: Escalation of care including admission/observation considered Lab Data MDM Lab Attestation statement: I reviewed the patient's lab results. 11/16/24 11:41 Labs: Lab Results 11/16/24 11/16/24 11/16/24 Range/Units 11:41 12:20 12:21 WBC 8.2 (4.8-10.8) X10*3/uL RBC 5.40 (4.60-5.80) X10*6/uL Hgb 14.7 (14.0-18.0) g/dl Hct 43.2 (42.0-52.0) % MCV 80.0 (80.0-98.0) fL MCH 27.2 (27.0-33.0) pg MCHC 34.0 (31.0-36.0) g/dl RDW 13.3 (11.0-16.0) % Plt Count 296 (160-400) X10*3/uL MPV 10.6 (9.4-12.4) fL Immature Gran % (Auto) 0.7 H (0.0-0.4) % Neut % (Auto) 64.7 (45-73) % Lymph % (Auto) 22.4 (20-40) % [place] % (Auto) 7.1 (2-11) % Eos % (Auto) 4.4 H (0-4) % Baso % (Auto) 0.7 (0-2) % Lymph # (Auto) 1.8 (1.2-4.9) X10*3/uL [place] # (Auto) 0.6 (0.1-1.2) X10*3/uL Eos # (Auto) 0.4 (0.0-0.4) X10*3/uL Baso # (Auto) 0.1 (0.0-0.2) X10*3/uL Abs Immat Gran (auto) 0.06 H (0.00-0.03) X10*3/uL Absolute Neuts (auto) 5.3 (2.0-8.3) x10*3/uL Absolute Nucleated RBC 0.000 (0.0-0.012) X10*3/uL Nucleated RBC % (auto) 0.0 (0.0-0.2) /100WBC Estimat Average Glucose 105 mg/dL Hemoglobin A1c % 5.3 (<6.0) % Magnesium 2.2 (1.6-2.6) mg/dL Vitamin B12 518 (200-900) pg/mL Folate 10.3 (> or = 4.0) ng/mL TSH 1.24 (0.32-4.0) uIU/mL COVID-19 (ASHWIN) Negative (Negative) COVID-19 Clin Com See Note Influenza Type A ([facility]) Negative (Negative) Influenza Type B ([facility]) Negative (Negative) Influenza A & B Note See Note External Record Review External record reviewed: Inpatient record, Office record and Outpatient record Prescription Management I considered prescription management with: Antibiotic (I considered antibiotic for upper respiratory symptoms, however patient with symptoms for only 2 days, without leukocytosis, afebrile) Chronic Conditions Patient?s care impacted by: Other (No known medical history) Discharge Plan Discharge Clinical Impression: Bilateral wrist pain, Viral syndrome Patient Disposition: Home, Self-Care Additional Instructions: You were evaluated in the ED today due to bilateral hand numbness and pain. Your lab work was reassuring today as you did not have a significant elevation or decrease in your white blood cells, no evidence of anemia, no electrolyte imbalance, your thyroid function tests were within normal range, your HGB A1c which is a marker for diabetes was normal at 5.3, your random serum glucose was within range at 105, your vitamin b12 and folate levels were within range. Your physical exam was questionable for possible carpal tunnel, you will be discharged with wrist splints that you should wear at night to help protect the nerves in your hand. I will place referral to our hand specialist Dr. Canada. Please call the office on Monday as they will not call you. Additionally, I believe your symptoms are related to a viral illness as you were COVID and flu tests were negative today. To manage pain at home you can alternate 500mg tylenol and 400mg ibuprofen along with wearing wrist splints at night to protect nerves. Please return to the emergency department if you experience worsening cough, fevers over 100.4? that are not controlled by Tylenol or ibuprofen, worsening hand pain, inability to move the hands, worsening sensation of the hands, or any new/worsening/concerning symptoms. Prescriptions: No Action clindamycin HCl 300 mg capsule 300 mg PO TID 10 Days Qty: 30 0RF morphine 15 mg tablet 15 mg PO Q8H PRN (Reason: pain (scale score 7-10)) Qty: 14 0RF Rx Instructions: Partial Fill upon patient request. erythromycin 5 mg/gram (0.5 %) ointment 0.5 inch ophthalmic (eye) QID 5 Days Qty: 3.5 0RF [place] [facility] [place] [facility] [Provider Group] Interventions: ED Discharge Assessment Last Done: 11/16/24 13:25 Discharge Date/Time: 11/16/24 13:27 Print Language: Serbian
[2024-11-16 11:59] LABS: Hemoglobin A1C 132.5970 umol/L; Total Hemoglobin (HGBA1C) 3882.8177 umol/L
[2024-11-16 12:07] VITALS: BP 132/81; PULSE 90; RESP 14; TEMP 36.6; O2SAT 95
[2024-11-16 12:07] LABS: Magnesium 2.2 mg/dL (1.6-2.6)
[2024-11-16 12:36] LABS: Folate 10.3 ng/mL (> or = 4.0); Vitamin B12 518 pg/mL (200-900)
[2024-11-16 13:00] LABS: IDNOW Serial# 08D9AD1C; Influenza B2 Negative (Negative)
[2024-11-16 13:01] LABS: COVID-19 Test Negative (Negative); IDNOW Serial# 6674DD1D
[2024-11-16 13:25] VITALS: BP 132/81; PULSE 90; RESP 14; TEMP 36.6; O2SAT 95
== END 2024-11-16 13:27 | disposition home or self-care (01) ==
PROVIDERS: Emergency Provider Emergency Medicine; PCP Nurse Practitioner Family
DX: B34.9 Viral infection, unspecified (principal); M25.532 Pain in left wrist; M25.531 Pain in right wrist; M79.642 Pain in left hand; M79.641 Pain in right hand; Z03.818 Encounter for observation for suspected exposure to other biological agents ruled out
CPT/HCPCS: 36415; 82607; 82746; 83036; 83735; 84443; 85025; 87502; 87635; 99283

== ENCOUNTER 2025-02-23 15:04 | Emergency (ER) | payer OTHER, SELFPAY ==
--- NOTE | 2025-02-23 15:10 | ED_ITS ---
HPI - Fever General Chief Complaint: Upper Respiratory Symptoms Stated Complaint: Bodyaches fever coughing up blood Time Seen by Provider: 02/23/25 15:15 History of Present Illness ED Provider: Margaret Marques NP HPI Narrative: 29-year-old male presents no significant past medical history to the ED with chief complaint body aches, subjective fever, chills, coughing ongoing for 24 hours. Patient is using TheraFlu, DayQuil, reporting no significant improvement. No chest pain or pressure, shortness of breath, abdominal pain. No sputum production. No vomiting, , nausea. Does report some diarrhea. Nonbloody. Upon arrival to the ED, Temp 99.8? F, low-grade. Related Data Previous Rx's ?Medication ?Instructions ?Recorded clindamycin HCl 300 mg capsule 300 mg PO TID 10 days # 30 caps 01/29/23 morphine 15 mg immediate release 15 mg PO Q8H PRN pain (scale score 01/29/23 tablet 7-10) #14 tabs erythromycin 5 mg/gram (0.5 %) eye 0.5 inch ophthalmic (eye) QID 5 07/08/24 ointment days #3.5 grams Allergies Allergy/AdvReac Type Severity Reaction Status Date / Time No Known Allergies Allergy Verified 02/23/25 15:15 Review of Systems Review of Systems: ROS is otherwise negative unless mentioned in HPI. [facility] Social History Social History Substance Use Type: Marijuana Advance Directives: No Advance Directives Information Provided: No Do you have a plan to hurt others: No Plan Physical Exam Exam: Exam: Nursing notes and vital signs reviewed. Constitutional: Well-appearing, NAD. Alert. Oriented X3. Eyes: EOMI. ENT: Oropharynx pink, moist. Tonsils of normal appearance bilaterally without exudate or erythema. Midline uvula. Neck: Normal inspection. Neck supple. No cervical adenopathy. CVS: Normal heart rate and rhythm. Pulses normal. Respiratory: No respiratory distress. Breath sounds normal. Abdomen: Nondistended. Skin: Skin warm and dry. Normal skin color. Extremities: No lower extremity edema. Neuro: Oriented X 3. No motor deficit. Vital Signs: Vital Signs: Last Vital Signs Temp 99.6 F 02/23/25 15:12 Pulse 110 H 02/23/25 15:56 Resp 26 H 02/23/25 15:56 BP 147/86 H 02/23/25 15:12 Pulse Ox 99 02/23/25 15:56 O2 Del Method Room Air 02/23/25 15:56 BMI result Body Mass Index 38.4 Medications Administered Discontinued Medications Generic Name Dose Route Start Last Admin Trade Name Raza PRN Reason Stop Dose Admin Acetaminophen 975 mg 02/23/25 15:29 02/23/25 15:51 Acetaminophen 325 Mg Tablet PO 02/23/25 15:30 975 mg ONCE ONE Administration Dexamethasone 10 mg 02/23/25 15:29 02/23/25 15:51 Dexamethasone 2 Mg Tablet PO 02/23/25 15:30 10 mg ONCE ONE Administration Medical Decision Making Medical Decision Making [facility] Narrative: Well-appearing male, NAD. Answering questions appropriately. Reports he has been feeling unwell for about 1 day, coughing episodes began worse last night. Tells me he is coughing very hard, [id number] medications are not helping. Plan for viral panel, as he has flu-like symptoms, and reassess. 4:19 PM- Swab has returned positive for influenza A. Negative for flu B, RSV, COVID. He is resting comfortably upon my assessment. Heart rate is improved in the mid 90s. Temperature has also improved. Plan to discharge home with oral Tylenol, ibuprofen [id number], instructions for supportive care. I did offer Tamiflu, but patient declined given his present GI symptoms. Provided return precautions to the ED, he is agreeable. Differential Diagnosis Differential Diagnoses: The differential diagnosis associated with the presentation includes Viral illness, bronchitis Admission/Observation Consideration of admission/observation: Escalation of care including admission/observation considered (Not indicated) Lab Data [facility] Lab Attestation statement: I reviewed the patient's lab results. (Positive for influenza A.) Labs: Lab Results 02/23/25 Range/Units 15:29 Influenza Type A (PCR) POSITIVE A (Negative) Influenza Type B (PCR) NEGATIVE (Negative) RSV RNA Qual (PCR) NEGATIVE (Negative) SARS-CoV-2 RNA (RT-PCR) NEGATIVE (Negative) Independent Historian None External Record Review External record reviewed: Outside ED record Prescription Management I considered prescription management with: Antiviral Tamiflu, offered but declined by patient. Social Determinants Patient?s care significantly limited by Social Determinants of Health including: Problems related to primary support group Discharge Plan Discharge Clinical Impression: Influenza A Patient Disposition: Home, Self-Care Instructions: Droplet Precautions (ED), Influenza (DC) Additional Instructions: As we discussed, your viral panel was positive for influenza A. Please use supportive care measures [id number] including Tylenol, ibuprofen. Follow up with your PCP within 1 week. Return to the ED with any worsening complaints. Prescriptions: No Action clindamycin HCl 300 mg capsule 300 mg PO TID 10 Days Qty: 30 0RF morphine 15 mg tablet 15 mg PO Q8H PRN (Reason: pain (scale score 7-10)) Qty: 14 0RF Rx Instructions: Partial Fill upon patient request. erythromycin 5 mg/gram (0.5 %) ointment 0.5 inch ophthalmic (eye) QID 5 Days Qty: 3.5 0RF Referrals: Chadwick López NP [Primary Care Provider, Family Practice] Print Language: Maori
[2025-02-23 15:12] VITALS: BP 147/86; PULSE 114; RESP 18; TEMP 37.6; O2SAT 95; BMI 38.4
[2025-02-23 15:56] VITALS: PULSE 110; RESP 26; O2SAT 99
[2025-02-23 16:13] LABS: Resp Syncy Virus RNA Qual PCR NEGATIVE (Negative); SARS COV2 PCR INHOUSE NEGATIVE (Negative)
[2025-02-23 16:27] VITALS: BP 134/81; PULSE 98; RESP 22
[2025-02-23 16:52] VITALS: BP 134/81; PULSE 98; RESP 22; TEMP 37.2; O2SAT 97
== END 2025-02-23 16:53 | disposition home or self-care (01) ==
PROVIDERS: Nurse Practitioner; Emergency Provider Emergency Medicine Emergency Medical Services; PCP Nurse Practitioner Family
DX: J10.1 Influenza due to other identified influenza virus with other respiratory manifestations (principal); R05.9 Cough, unspecified; Z03.818 Encounter for observation for suspected exposure to other biological agents ruled out
CPT/HCPCS: 87637; 99283; J8540

== ENCOUNTER 2025-02-25 10:50 | Emergency (ER) | payer OTHER, SELFPAY ==
--- NOTE | ~2025-02-25 | XR_ITS ---
EXAMINATION: XR CHEST 2 VIEWS HISTORY: Flu positive. coughing. bacterial pneumonia? COMPARISON: There are no prior studies available for comparison. FINDINGS: PA and lateral views of the chest are submitted. There are low lung volumes. The lungs are clear. There is no pleural effusion, pneumothorax, or pulmonary vascular congestion. The heart is normal in size. The bones are intact. XR/XR chest 2V IMPRESSION: Low lung volumes. The lungs are clear. Electronically signed by: Randall Rivera MD 02/25/2025 11:32 AM AMANDO
[2025-02-25 11:01] VITALS: BP 133/87; PULSE 114; RESP 22; TEMP 37.3; O2SAT 97; BMI 38.7
--- NOTE | 2025-02-25 11:05 | ED_ITS ---
HPI - General Adult General Chief complaint: General Medical Stated complaint: Lung Pain,Coughing, Not Able To Use Bathroom,Fever Time Seen by Provider: 02/25/25 12:29 Source: patient Mode of arrival: ambulatory Limitations: no limitations History of Present Illness ED Provider: Afshin Molina HPI narrative: 29 yold male who tested positive for flu 2 days ago in this ED present for painful cough and chest pain when coughing. patient states he was not prescribed any meds when he tested positive for flue. Related Data Previous Rx's ?Medication ?Instructions ?Recorded clindamycin HCl 300 mg capsule 300 mg PO TID 10 days # 30 caps 01/29/23 morphine 15 mg immediate release 15 mg PO Q8H PRN pain (scale score 01/29/23 tablet 7-10) #14 tabs erythromycin 5 mg/gram (0.5 %) eye 0.5 inch ophthalmic (eye) QID 5 07/08/24 ointment days #3.5 grams hydrocodone-homatropine 5 mg-1.5 5 ml PO Q6H PRN cough 3 days #60 mL 02/25/25 mg/5 mL oral solution (Hycodan (with homatropine)) naproxen 500 mg tablet 500 mg PO BID PRN pain #14 t abs 02/25/25 Allergies Allergy/AdvReac Type Severity Reaction Status Date / Time No Known Allergies Allergy Verified 02/25/25 11:03 Review of Systems Review of Systems: URI symptoms. chest pain with coughing Yes all other systems are reviewed and are negative [facility] Social History Social History Substance Use Type: Marijuana Advance Directives: No Advance Directives Information Provided: Yes Physical Exam ED Vital Signs: Vital Signs - 24 hr 02/25/25 11:01 Temperature 99.1 F Pulse Rate 114 H Respiratory Rate 22 H Blood Pressure 133/87 Pulse Oximetry 97 Oxygen Delivery Method Room Air BMI result Body Mass Index 38.7 Const General: cooperative, healthy appearing, comfortable, no acute distress, well developed, alert, awake and Physically active Orientation/consciousness: patient oriented x3 HENMT Head: Yes normal to inspection, Yes No palpable skull fracture present, Yes normocephalic and Yes atraumatic Eyes General: appearance normal, both eyes and all related structures Neck Neck: Yes normal visual inspection, Yes full ROM, Yes no lymphadenopathy, Yes no meningeal signs, Yes trachea midline, Yes supple, No anterior neck swelling and No tender Chest Chest palpation & inspection: normal inspection of the chest and normal palpation of entire chest wall Resp Effort & Inspection: normal respiratory effort and able to speak in complete sentences Auscultation: clear to auscultation bilaterally Cardio Jugular venous distension: no JVD Heart sounds: S1 normal heart sound present and S2 normal heart sound present GI Inspection: Yes normal to inspection Palpation (GI): Soft to palpation, not firm, nontender, no guarding and not rigid General: Yes no CVA tenderness Back/Spine/Pelvis Back: no CVA tenderness and No back tenderness Skin General skin exam: no rashes or lesions noted, elasticity normal and turgor normal Neuro General: patient oriented x3, gait normal, tone normal, moves all extremities, Normal light touch and pain sensation, no meningeal signs, no focal motor deficits, CN's II-XI intact bilaterally and normal sensation to monofilament Extrem General: Yes normal to inspection, Yes full ROM and Yes capillary refill normal Psych Appearance: grossly normal, well kempt and not disheveled Course Course Course Narrative: RME: 29 year male recently diagnosed with flu 2 days ago presents to ED for worsening cough with chest pain. Patient states he is prescribed no medications. X-ray ordered. Medical Decision Making Medical Decision Making [facility] Narrative: 29 yold male presents to the ED continue symptoms some flu. Patient is requesting medication. X-ray negative for bacterial pneumonia. No need for further intervention. Not suspecting PE, CHF, myocarditis, [place], pericarditis, or any other life threatening etiology. Patient is discharged with coughing medication informed to follow up with primary care provider and explained worrisome signs. Differential Diagnosis Differential Diagnoses: The differential diagnosis associated with the presentation includes (Flu) Admission/Observation Consideration of admission/observation: Escalation of care including admission/observation considered Independent Interpretation I performed an independent interpretation of an: Plain X-Ray Radiology Impression Discussion of test interpretation with radiology: I have reviewed the radiologist's reading. Independent Historian Clinical information obtained from an independent historian. History obtained from or confirmed by: Other (Patient) Prescription Management I considered prescription management with: Pain Medication Discharge Plan Discharge Clinical Impression: Influenza Patient Disposition: Home, Self-Care Instructions: Influenza (ED) Additional Instructions: Recommend follow up with PCP. Return to the ED immediately for any chest pain, shortness of breath, weakness, dizziness, coughing up blood, leg swelling, calf pain, chest pain on inspiration, or any other concerning symptoms. Prescriptions: New hydrocodone-homatropine [Hycodan (with homatropine)] 5-1.5 mg/5 mL solution 5 ml PO Q6H PRN (Reason: cough) 3 Days Qty: 60 0RF Rx Instructions: Partial Fill upon patient request. naproxen 500 mg tablet 500 mg PO BID PRN (Reason: pain) Qty: 14 0RF No Action clindamycin HCl 300 mg capsule 300 mg PO TID 10 Days Qty: 30 0RF morphine 15 mg tablet 15 mg PO Q8H PRN (Reason: pain (scale score 7-10)) Qty: 14 0RF Rx Instructions: Partial Fill upon patient request. erythromycin 5 mg/gram (0.5 %) ointment 0.5 inch ophthalmic (eye) QID 5 Days Qty: 3.5 0RF Referrals: Chadwick López NP [Primary Care Provider, Family Practice] - 2 days Referral Note: Flu Clinical Impression: Influenza Stand Alone Forms: Work/School Release Discharge Date/Time: 02/25/25 13:02 Print Language: Sammarinese
== END 2025-02-25 13:02 | disposition home or self-care (01) ==
PROVIDERS: Emergency Provider Emergency Medicine; PCP Nurse Practitioner Family
DX: J11.1 Influenza due to unidentified influenza virus with other respiratory manifestations (principal); R05.9 Cough, unspecified; R07.9 Chest pain, unspecified
CPT/HCPCS: 71046; 99281; 99283

== ENCOUNTER → 2025-02-25 11:04 | Outpatient (BNV) | payer OTHER, SELFPAY | PROVIDERS: PCP Nurse Practitioner Family; Visit Provider Radiology Diagnostic Radiology | DX: J98.4 Other disorders of lung (principal) | CPT/HCPCS: 71046 ==